=== PATIENT | female | born 1970 | race Caucasian/White ===

== ENCOUNTER 2024-10-11 14:11 | Outpatient (AMB) | payer OTHER, SELFPAY ==
--- NOTE | 2024-10-11 14:16 | A.OFFPC_ITS ---
Vital Signs 10/11/24 14:26 Height 5 ft 3.78 in Weight 161 lb 8 oz BMI 27.9 BP 98/64 Blood Pressure Location Rt brachial Position Sitting Respiration 12 Pulse 62 Pulse Source Pulse Oximeter Temp 98.3 F Temp Source Oral Pulse Oximetry (%) 98 Oxygen Delivery Method Room Air Intake Visit Reasons: care/ low back pain/mental health ref Intake Note: New patient visit Band Manager Required: No Allergies No Known Allergies Allergy (Verified 10/11/24 14:23) Medication List - Last Reconciled 10/11/24 by Ivory Montoya MD duloxetine 60 mg PO DAILY Tobacco use date assessed: 10/11/24 Dental Screening Dental Screen Date: 10/11/24 Did you have a dental visit in the last 12 months?: Yes Did you have a dental problem in the last 6 months where you did not have access to dental care?: No Was dental information given to patient?: Patient has dentist HPI HPI Comments History of Present Illness Details The patient is a 53 year old female with a past medical history of low back pain, depression presenting to [facility]. Transferring from [place]. BH: On [facility]. She would like to see a therapist. Her and her (in [place]) are going through a divorce. She has no money. She is living with her father. Her son is stationed in the [employer] in [place]. Was recently there to visit and brought his cat home. The cat is not fond of her. MSK: Low back pain, neck and shoulder pain. Hurt in 20s . Has has PT in the past, tried cortisone shots in the past. 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 This improved in childhood. Notes she has always been plagued by joint pain, muscle aches ROS see HPI PHYSICAL EXAM: GENERAL: Alert and oriented x 3. NAD EYES: EOMI. Anicteric. HENT: Moist mucous membranes. No scleral icterus. No cervical lymphadenopathy. LUNGS: Clear to auscultation bilaterally. CARDIOVASCULAR: Regular rate and rhythm. No murmur. No JVD. ABDOMEN: Soft, non-tender +bs EXTREMITIES: No edema. Non-tender. SKIN: No rashes or lesions. Warm. NEUROLOGIC: No focal neurological deficits. CN II-XII grossly intact PSYCHIATRIC: Cooperative. Appropriate mood and affect [facility] Surgical History History of lumpectomy of right breast History of tubal ligation H/O dilation and curettage Family History Father HTN (hypertension) Social History Housing: House Alcohol intake: current Patient Tobacco Use Status: Never used Tobacco e-Cigarette/Vaping Use: Currently Using Second Hand Smoke Exposure: No Substance Use Type: Former Substance User and Marijuana service: No Current occupational status: employed Current occupation: [employer] Current occupational exposures/hazards: No Cognitive needs: No Hearing needs: Yes (hearing issues.) Vision needs: Yes (glasses, near sighted.) Questionnaire PHQ-9 Over the last 2 weeks, how often have you been bothered by any of the following problems? 1. Little interest or pleasure in doing things: more than half the days 2. Feeling down, depressed, or hopeless: more than half the days 3. Trouble falling or staying asleep, or sleeping too much: nearly every day 4. Feeling tired or having little energy: nearly every day 5. Poor appetite or overeating: several days 6. Feeling bad about yourself - or that you are a failure or have let yourself or your family down: nearly every day 7. Trouble concentrating on things, such as reading the newspaper or watching television: nearly every day 8. Moving or speaking so slowly that other people could have noticed. Or the opposite - being so fidgety or restless that you have been moving around a lot more than usual: several days 9. Thoughts that you would be better off or of hurting yourself in some way: not at all Total score: 18 Depression Screening Interpretation: Positive Depression Screening Follow-up: Community Mental Health Worker F/U Depression Screening Done: Yes 84923 - PHQ-9 Billing: Yes Source: Developed by Drs. Franco Soto, Claire Javed, Blair Rose and colleagues, with an educational dong from [employer]. Thrive Questionnaire I am a: Patient What is your living situation today?: I have a steady place to live Within the past 12 months, did the food you bought not last and you didn't have the money to get more?: Sometimes True Within the past 12 months, did you worry whether your food would run out before you got money to buy more?: I choose not to answer this question Do you have trouble paying for medicines?: Yes Do you have trouble getting transportation to medical appointments?: No Do you have trouble paying your heating and electricity bill?: No Do you have trouble taking care of your child, family member or friend?: Yes Do you have trouble with day-to-day activities such as bathing, preparing meals, shopping, managing finances, etc.?: Yes Are you currently unemployed and looking for a job?: No Are you interested in more education?: No Please select the resources that you would like help with: Paying for medicine Currently or been in a relationship where the following occur: Controlled Financially and Controlled Emotionally THRIVE Score: 3 AUDIT C Alcohol Use Questionnaire (AUDIT-C) 1. How often do you have a drink containing alcohol?: 4 or more times a week 2. How many drinks containing alcohol do you have on a typical day when you are drinking?: 3 or 4 3. How often do you have six or more drinks on one occasion?: Monthly Total Score: 7 BRENDA-7 AMB Questionnaire BRENDA-7 Feeling nervous, anxious, or on edge: 2 = More than half the days Not being able to stop or control worryin = More than half the days Worrying too much about different things: 2 = More than half the days Trouble relaxin = Nearly every day Being so restless that it is hard to sit still: 1 = Several days Becoming easily annoyed or irritable: 1 = Several days Feeling afraid as if something awful might happen: 1 = Several days Total BRENDA-7 score (0-4 normal; 5-9 mild; 10-14 moderate; 15-21 severe): 12 Source: Developed by Drs. Franco Soto, Claire Javed, Blair Rose and colleagues, with an educational dong from [employer]. Physical exam (Primary Care) Vital Signs: Last Vital Signs Temp 98.3 F 10/11/24 14:26 Pulse 62 10/11/24 14:26 Resp 12 10/11/24 14:26 BP 98/64 10/11/24 14:26 Pulse Ox 98 10/11/24 14:26 Oxygen Delivery Method Room Air 10/11/24 14:26 BMI result Body Mass Index 27.9 Tobacco/Smoking Status: Tobacco use Status Tobacco use date assessed 10/11/24 10/11/24 14:19 Patient Tobacco Use Status Never used Tobacco 10/11/24 14:42 e-Cigarette/Vaping Use Currently Using 10/11/24 14:42 PHQ-9: PHQ-9 Score PHQ-9: Total score 18 10/12/24 11:11 Depression Screening Interpretation: Positive Depression Screening Follow-up: Community Mental Health Worker F/U Currently or been in a relationship where the following occur: Controlled Financially and Controlled Emotionally Coding Level of Care Code New Pt Level 4 (07030) Complex EM visit Add On G2211 Diagnoses Encounter to establish care Z76.89 Recurrent major depressive disorder, in partial remission F33.41 Active/Remission status: in partial remission Depression Type: major depressive disorder Major depression recurrence: recurrent Chronic bilateral low back pain, unspecified whether sciatica present M54.50; G89.29 Back pain laterality: bilateral Chronicity: chronic Sciatica presence: unspecified whether sciatica present Additional Codes PHQ-9 - 07174 - PHQ-9 Billing: Yes ([id number]) Assessment & Plan Assessment & Plan (1) Encounter to establish care: Code(s): Z76.89 - Persons encountering health services in other specified circumstances Category: Medical (2) Depression: Code(s): F32.A - Depression, unspecified Category: Medical Qualifiers: Active/Remission status: in partial remission Depression Type: major depressive disorder Major depression recurrence: recurrent Qualified Code(s): F33.41 - Major depressive disorder, recurrent, in partial remission (3) Low back pain: Code(s): M54.50 - Low back pain, unspecified Category: Medical Qualifiers: Back pain laterality: bilateral Chronicity: chronic Sciatica presence: unspecified whether sciatica present Qualified Code(s): M54.50 - Low back pain, unspecified; G89.29 - Other chronic pain Plan 53 y/o to establish care Past medical, surgical, social & family history reviewed Back pain-xrays ordered. Referral to pain management. continue cymbalta. Trial baclofen, meloxicam Due for preventive care-Mammo ordered. Referral to obkatelynn Cologjean ordered : increased stress. continues to benefit from cymbalta. referral to placed. Labs ordered Orders: Orders XR lumbar spine 2-3V 10/11/24 M54.2 - Cervicalgia, M54.50 - Low back pain, unspecified XR cervical spine 4V 10/11/24 M54.2 - Cervicalgia, M54.50 - Low back pain, unspecified Erythrocyte Sedimentation Rate 10/11/24 F32.A - Depression, unspecified, F43.9 - Reaction to severe stress, unspecified, M25.50 - Pain in unspecified joint, M54.2 - Cervicalgia, M54.50 - Low back pain, unspecified Comprehensive Met. Panel 10/11/24 F32.A - Depression, unspecified, F43.9 - Reaction to severe stress, unspecified, M25.50 - Pain in unspecified joint, M54.2 - Cervicalgia, M54.50 - Low back pain, unspecified TSH reflex Free T4 10/11/24 F32.A - Depression, unspecified, F43.9 - Reaction to severe stress, unspecified, M25.50 - Pain in unspecified joint, M54.2 - Cervicalgia, M54.50 - Low back pain, unspecified MM diagnostic mammo BI 10/11/24 Z80.3 - Family history of malignant neoplasm of breast Complete Blood Count Auto Diff 10/11/24 F32.A - Depression, unspecified, F43.9 - Reaction to severe stress, unspecified, M25.50 - Pain in unspecified joint, M54.2 - Cervicalgia, M54.50 - Low back pain, unspecified Rheumatoid Factor 10/11/24 F32.A - Depression, unspecified, F43.9 - Reaction to severe stress, unspecified, M25.50 - Pain in unspecified joint, M54.2 - Cervicalgia, M54.50 - Low back pain, unspecified Lyme IgG/IgM w/reflex to WB 10/11/24 F32.A - Depression, unspecified, F43.9 - Reaction to severe stress, unspecified, M25.50 - Pain in unspecified joint, M54.2 - Cervicalgia, M54.50 - Low back pain, unspecified Vitamin B12 and Folate 10/11/24 F32.A - Depression, unspecified, F43.9 - Reaction to severe stress, unspecified, M25.50 - Pain in unspecified joint, M54.2 - Cervicalgia, M54.50 - Low back pain, unspecified Referrals Behavioral Health Referral F32.A - Depression, unspecified, F43.9 - Reaction to severe stress, unspecified Cologuard Test Z01.419 - Encounter for gynecological examination (general) (routine) without abnormal findings, Z12.11 - Encounter for screening for malignant neoplasm of colon, Z12.12 - Encounter for screening for malignant neoplasm of rectum Pain Management Referral M54.2 - Cervicalgia, M54.50 - Low back pain, unspecified EXTENSION SERVICE SPECIALIST Referral Z01.419 - Encounter for gynecological examination (general) (routine) without abnormal findings Medications: New baclofen 10 mg PO QID 120 tabs 3RF duloxetine 60 mg PO DAILY 90 caps 3RF meloxicam 15 mg PO DAILY 90 tabs 3RF
[2024-10-11 14:26] VITALS: BP 98/64; PULSE 62; RESP 12; TEMP 36.8; O2SAT 98; BMI 27.9
--- OUTSIDE RECORDS SUMMARY | 2024-10-11 15:33 | XMS_ITS ---
Author Organization [facility], [facility] Address [address] [place], [place] [id number] Care Team Providers Care Reinforcing Steel Worker Name Role Phone VALENTINO RICHARDSON Primary Care Provider [phone] Ailyn Cates [phone] REASON FOR VISIT New patient Encounters Encounter Location Date Provider Diagnosis [facility], [facility] [address] [place], [place] [phone] 07/05/2024 Ailyn Cates PLAN OF TREATMENT No Information Progress Notes * AUDREY WHITEHEADDOB: 2 (53 yo F)Acc No.[id number]:07/05/2024 Progress Notes Patient:??AUDREY WHITEHEAD Provider:??Ailyn Cates DNP :1970?Age:53 Y?Sex:Fe male Date:07/05/2024 Address:[address] [place], [place] [id number] Pcp:VALENTINO RICHARDSON Subjective: * Chief Complaints: * ?1. New patient. * Medical History:?? Objective: Assessment: Plan: * Treatment: Care Plan: * Problems:?? * Billing Information: * Visit Code:?? * Procedure Codes:?? * Sign off status: Pending * Provider:??Ailyn Cates DNP Date:??
--- OUTSIDE RECORDS SUMMARY | 2024-10-11 15:33 | XMS_ITS | Patient Health Record ---
Author Organization [facility] Address [address], [place] [id number] Care Team Providers Care Evs Manager Name Role Phone VALENITNO RICHARDSON Primary Care Provider Ailyn Cates [phone] REASON FOR REFERRAL No Information Encounters Encounter Location Date Provider Diagnosis [facility] [address], [place] [id number] 07/05/2024 Ailyn Cates PLAN OF TREATMENT No Information Insurance Providers Payer Name Payer Address Payer Phone Subscriber Number Group Number Insured Name Patient Relationship to Insured Coverage Start Date Coverage End Date [facility] [address] [address] [place] [phone] [id number] AUDREY WHITEHEAD Self - patient is the insured
== END 2024-10-11 14:53 | disposition home or self-care (01) ==
LOC: HO.HMCFM 14:12
PROVIDERS: PCP Internal Medicine; Visit Provider Internal Medicine
DX: Z76.89 Persons encountering health services in other specified circumstances (principal); F33.41 Major depressive disorder, recurrent, in partial remission; M54.50 Low back pain, unspecified; G89.29 Other chronic pain

== ENCOUNTER → 2024-10-11 14:11 | Outpatient (BNVA) | payer OTHER, SELFPAY | PROVIDERS: PCP Internal Medicine; Visit Provider Internal Medicine | DX: F33.41 Major depressive disorder, recurrent, in partial remission (principal); M54.50 Low back pain, unspecified; G89.29 Other chronic pain; M54.2 Cervicalgia; F43.9 Reaction to severe stress, unspecified; Z80.3 Family history of malignant neoplasm of breast; Z76.89 Persons encountering health services in other specified circumstances | CPT/HCPCS: 96127 ==

== ENCOUNTER 2024-10-11 14:58 | Outpatient (REF) | payer OTHER, SELFPAY ==
[2024-10-11 17:38] LABS: MANUAL DIFF FLAG NO
[2024-10-11 17:47] LABS: Basophils Absolute Auto 0.1 X10*3/uL (0.0-0.2); Eosinophils Absolute Auto 0.1 X10*3/uL (0.0-0.4); Eosinophils Percent Auto 1.8 % (0-4); Hematocrit 39.6 % (37.0-47.0); Hemoglobin 14.1 g/dl (12.0-16.0); Imm Gran Abs Auto 0.02 X10*3/uL (0.00-0.03); Imm Gran Pct Auto 0.4 % (0.0-0.4); Lymphocytes Absolute Auto 1.5 X10*3/uL (1.2-4.9); Lymphocytes Percent Auto 29.2 % (20-40); Mean Corpuscular HGB Conc 35.6 g/dl (31.0-35.0); Mean Corpuscular Hemoglobin 33.3 pg (27.0-33.0); Mean Corpuscular Volume 93.4 fL (80.0-98.0); Mean Platelet Volume 9.5 fL (9.4-12.3); Monocytes Absolute Auto 0.4 X10*3/uL (0.1-1.2); Monocytes Percent Auto 8.4 % (2-11); Neutrophils Percent Auto 59.2 % (45-73); Platelet Count 264 X10*3/uL (160-400); Red Blood Count 4.24 X10*6/uL (4.20-5.50); Red Cell Distribution Width 11.9 % (11.0-16.0); White Blood Count 5.1 X10*3/uL (4.8-10.8)
[2024-10-11 18:17] LABS: Rheumatoid Factor < 13.0 IU/mL (<15.0)
[2024-10-11 18:31] LABS: Erythrocyte Sedimentation Rate 12 MM/HR (0-20)
[2024-10-11 18:42] LABS: Folate 12.1 ng/mL (> or = 4.0); Vitamin B12 779 pg/mL (200-900)
[2024-10-11 19:13] LABS: Alanine Aminotransferase 21 U/L (0-31); Alkaline Phosphatase 97 U/L (39-117); Anion Gap 13 (12-20); Aspartate Amino Transferase 30 U/L (5-31); Bilirubin Total 0.2 mg/dL (0.0-1.0); Blood Urea Nitrogen 14 mg/dL (9-16); Carbon Dioxide 25 mmol/L (22-29); Chloride 109 mmol/L (96-108); Estimated Glomerular Filt Rate > 60; Glucose Random 92 mg/dL (60-115); Potassium 4.2 mmol/L (3.3-5.1); Sodium 143 mmol/L (135-145); TSH reflex Free T4 2.04 uIU/mL (0.32-4.0); Total Protein 6.6 g/dL (6.5-8.0)
[2024-10-12 22:43] LABS: Lyme Abs Screen <0.90 index
== END 2024-10-11 14:59 | disposition home or self-care (01) ==
LOC: HO.WFDLDS 14:58
PROVIDERS: Visit Provider Internal Medicine
DX: F32.A Depression, unspecified (principal); M54.50 Low back pain, unspecified; F43.9 Reaction to severe stress, unspecified; M54.2 Cervicalgia; M25.50 Pain in unspecified joint
CPT/HCPCS: 36415; 80053; 82607; 82746; 84443; 85025; 85652; 86431; 86617; 86618

== ENCOUNTER 2024-11-03 08:12 | Outpatient (REF) | payer OTHER, SELFPAY ==
--- NOTE | ~2024-11-03 | XR_ITS ---
CLINICAL HISTORY: M54.2 - Cervicalgia 5 views cervical spine Comparison: None Findings: Normal alignment. No acute fractures or dislocation. There are degenerative disc changes at C3-C4 and C6-C7. Visualized neural foramina are patent. Prevertebral soft tissues within normal limits. IMPRESSION: No acute findings. This document has been electronically signed by: Liang Waters MD on 11/04/2024 08:54:27
--- NOTE | ~2024-11-03 | MM_ITS ---
EXAMINATION: MM SCREENING DIGITAL BREAST TOMOSYNTHESIS, BILATERAL CLINICAL INFORMATION: Screening. Asymptomatic. COMPARISON: Mammography: Comparison is made with available priors TECHNIQUE: Digital breast mammography with tomosynthesis is performed in both the craniocaudal and mediolateral oblique views along with computer-aided detection (CAD). FINDINGS: There are scattered areas of fibroglandular density (ACR BI-RADS breast composition Category b). There are no significant masses, abnormal calcifications, or other abnormalities. MM/MM tomosynthesis screening BI IMPRESSION: No mammographic evidence of malignancy. ASSESSMENT: BI-RADS BI-RADS 1 - Negative RECOMMENDATION: Routine annual mammography screening. 1 year F/U This examination should not preclude the clinical evaluation of a suspicious palpable abnormality. This patient's information was entered into a reminder system with a target due date for their next mammogram. Electronically signed by: Carolynn Rodríguez DO 11/08/2024 05:57 PM EDT
--- NOTE | ~2024-11-03 | XR_ITS ---
EXAMINATION: XR LUMBOSACRAL SPINE CLINICAL INFORMATION: M54.2 - Cervicalgia COMPARISON: None available. TECHNIQUE: Three views of the lumbosacral spine. FINDINGS: There is a mild levoconvex scoliosis, apex at L3. There is a normal lumbar lordosis. There is normal alignment without subluxation. No fractures, compression deformities, or suspicious bone lesions. Mild to moderate disc degeneration noted L3-S1. Normal facet alignment. Degenerative facet changes most notable L4-S1. The sacrum is intact. The SI joints appear normal. No soft tissue abnormalities. XR/XR lumbar spine 2-3V IMPRESSION: 1. No acute findings of the lumbar spine. 2. Mild levoconvex scoliosis and mild to moderate lumbar spondylosis. Electronically signed by: Jagdeep Francisco MD 11/03/2024 09:57 AM EDT
== END 2024-11-03 08:13 | disposition home or self-care (01) ==
LOC: HO.MAMMO 08:12
PROVIDERS: PCP Internal Medicine; Visit Provider Internal Medicine
DX: Z12.31 Encounter for screening mammogram for malignant neoplasm of breast (principal); M54.2 Cervicalgia; M54.50 Low back pain, unspecified
CPT/HCPCS: 72050; 72100; 77063; 77067

== ENCOUNTER → 2024-11-03 08:46 | Outpatient (BNV) | payer OTHER, SELFPAY | PROVIDERS: PCP Internal Medicine; Visit Provider Radiology Diagnostic Radiology | DX: M54.2 Cervicalgia (principal) | CPT/HCPCS: 72050; 72100 ==

== ENCOUNTER 2024-11-14 15:06 | Outpatient (AMB) | payer OTHER, SELFPAY ==
--- NOTE | 2024-11-14 15:09 | A.OFFVIS_ITS ---
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 Over more than two decades, these symptoms have significantly impacted her daily life, especially activities involving bending and lifting. The neck and shoulder pain were most notable post-physical therapy for back pain, linked to work duties. Despite a lack of trauma or whiplash history, the pain persists with descriptions of sharp, aching, and pulling characteristics, spreading across both shoulders. Pain management has included physical therapy and injections for back-related issues, while interventions for neck and shoulder pain have been minimal. The patient notes significant relief in back pain since starting Cymbalta, though the medication doesn't target neck or shoulder symptoms. Nicotine usage via vaping helps momentarily with muscle relaxation, complementing her non- medication pain management strategies. The patient continues to face challenges in her personal life including a history of depression, primarily associated with personal and familial stressors. She underwent stomach size reduction surgery nearly a decade ago for obesity, noticing ongoing memory issues postoperatively and experiences chronic headaches, sporadic concentration difficulties, and disrupted sleep cycles. - Onset and timing: Chronic; present for over 20 years - Quality and character: Sharp, pulling, aching, heavy, tingling, sore, tiring, tight, shooting, stabbing - Primary location: Neck and shoulders, radiating between shoulders - Areas of radiation: Between the two shoulders - Exacerbating factors: Worse in the morning and night; activities including bending, lifting, and wiping tables - Relieving factors: Cymbalta for back pain; using nicotine through vaping for muscle relaxation; heat/cold - Interference with activities: Difficulty lifting and completing particular tasks; limits driving distances - Affect: Reports depression, particularly due to personal stressors - Analgesia: Reports Cymbalta helps with back pain; current level of neck and shoulder pain varies between 5-8/10 - Adverse Effects: Reports no medication side effects - Activities of Daily Living: Refrains from activities requiring bending, lifting; reports decreased sleep quality due to pain - Aberrant Drug Related Behaviors: High nicotine usage through vaping; regular alcohol use Oswestry Back Pain Disability Score=22 Oswestry Neck Pain Disability Score=23 [facility] Surgical History (Updated 11/14/24 @ 15:30 by KLAUDIA Ahn) History of sleeve gastrectomy (~2009) History of lumpectomy of right breast History of tubal ligation H/O dilation and curettage Family History Father HTN (hypertension) Social History Housing: House Alcohol intake: current Alcohol intake frequency: 0-2 drinks per day Alcohol type: wine and hard liquor Patient Tobacco Use Status: Former Tobacco user e-Cigarette/Vaping Use: Currently Using Second Hand Smoke Exposure: No Substance Use Type: Former Substance User and Marijuana service: No Current occupational status: employed Current occupation: [employer] Current occupational exposures/hazards: No Cognitive needs: No Hearing needs: Yes (hearing issues.) Vision needs: Yes (glasses, near sighted.) Review of Systems Const Details: - Musculoskeletal: Reports chronic pain in neck, back, and shoulders; reports muscle spasms - Neurological: Reports headaches and concentration difficulties; denies dizziness from medications - Psychiatric: Reports a history of depression, current status under control with Cymbalta - Respiratory: Denies having any reported respiratory issues - Gastrointestinal: Reports history of weight loss surgery - Sleep: Reports disrupted sleep, waking up every few hours All systems reviewed & are unremarkable except as noted in HPI and below Physical Exam Vital Signs: Last Vital Signs Pulse 61 11/14/24 15:14 BP 121/65 11/14/24 15:14 Pulse Ox 99 11/14/24 15:14 Oxygen Delivery Method Room Air 11/14/24 15:14 BMI result Body Mass Index 27.0 General: Appears afebrile. Alert and oriented. Mood and affect appropriate. Follows and participates in conversation appropriately. Respiratory effort is unlabored. No cough. Able to transition from sit to stand unassisted. Ambulates with bilaterally normal heel strike and toe off. Neck Other: Patient with decreased cervical ROM in all planes/especially with lateral rotation. Reports mild to moderate pain with cervical extension and flexion. Spurling compression test is negative. Pain is unchanged by Spurling maneuver with retraction. Elvey's tension test negative bilaterally. Lhermitte's test was negative. DTR intact, +2 and symmetrical. Patient demonstrated 5/5 motor strength of bilateral upper extremities. 2 + radial pulses. Multiple taut bands palpated throughout bilateral upper trapezius and rhomboid muscles. Mildly restricted bilateral shoulder ROM, L>R with pain increase with overhead reaches and mild TTP in the anterior and posterior aspects of both shoulders. Neck: Yes normal visual inspection, Yes full ROM, Yes no lymphadenopathy, Yes supple, No anterior neck swelling, Yes no JVD, No prominent supraclavicular fat pad and Yes prominent dorsocervical fat pad General: Yes no CVA tenderness Back/Spine/Pelvis Other: Patient is able to walk and stand on heels and tip toes with no difficulties demonstrating good motor tone. No limping. Can flex forward to 75-80 degrees and extend to 5-10 degrees before experiencing lumbar pain, worse pain with extension and axial rotations. Demonstrates 5/5 strength of quadriceps bilaterally as well as flexion/dorsiflexion of bilateral feet against resistance. 2+ pedal pulses bilaterally. Straight leg rise with dorsiflexion negative bilaterally. +2 patellar and achilles reflexes bilaterally. Facet loading test positive bilaterally. Ace?s and Stinchfield tests are negative bilaterally. No groin pain with I/E hip rotations. Valsalva maneuver negative. Back: no CVA tenderness Cervical Spine: cervical ROM normal, cervical muscular tenderness, pain with cervical ROM, cervical spasm, No Cervical spine tenderness and No step off deformity Thoracic/Lumbar Spine: thoracic and lumbar spine normal to inspection, No Thoracic/lumbar spine scar(s), Lasegue's sign negative, straight leg raise negative bilaterally, pain with thoraco-lumbar ROM, paraspinal muscle tenderness, thoraco-lumbar ROM limited, Thoracic/lumbar scoliosis, No thoracic spinal tenderness and lumbar spinal tenderness Pelvis: no buttock tenderness Sacroiliac joints: bilaterally tender to palpation Extrem General: Yes capillary refill normal, Yes no clubbing, cyanosis or edema and Yes no calf tenderness Results Reviewed Results Reviewed: XR cervical spine 4V 11/04/24 Comparison: None Findings: Normal alignment. No acute fractures or dislocation. There are degenerative disc changes at C3-C4 and C6-C7. Visualized neural foramina are patent. Prevertebral soft tissues within normal limits. IMPRESSION: No acute findings. XR LUMBOSACRAL SPINE 11/03/24 CLINICAL INFORMATION: M54.2 - Cervicalgia COMPARISON: None available. TECHNIQUE: Three views of the lumbosacral spine. FINDINGS: There is a mild levoconvex scoliosis, apex at L3. There is a normal lumbar lordosis. There is normal alignment without subluxation. No fractures, compression deformities, or suspicious bone lesions. Mild to moderate disc degeneration noted L3-S1. Normal facet alignment. Degenerative facet changes most notable L4-S1. The sacrum is intact. The SI joints appear normal. No soft tissue abnormalities. IMPRESSION: 1. No acute findings of the lumbar spine. 2. Mild levoconvex scoliosis and mild to moderate lumbar spondylosis. XR Shoulder Marek min 2V 11/14/24 TECHNIQUE: AP, Grashey, scapular Y, axillary views bilateral shoulders INDICATION: Shoulder pain FINDINGS: LEFT SHOULDER: A.C. joint and glenohumeral joints are intact without degeneration. There is no dislocation. Visualized left upper chest is unremarkable. RIGHT SHOULDER: The AC joint is intact and not degenerated. The glenohumeral joint is intact and not degenerated. Visualized right chest is unremarkable. IMPRESSION: Unremarkable bilateral shoulders. Assessment & Plan Assessment & Plan (1) Low back pain: Code(s): M54.50 - Low back pain, unspecified Category: Medical Qualifiers: Back pain laterality: bilateral Chronicity: chronic Sciatica presence: unspecified whether sciatica present Qualified Code(s): M54.50 - Low back pain, unspecified; G89.29 - Other chronic pain (2) Cervicalgia: Code(s): M54.2 - Cervicalgia Category: Medical (3) Polyarthralgia: Code(s): M25.50 - Pain in unspecified joint Category: Medical (4) Lumbosacral spondylosis: Code(s): M47.817 - Spondylosis without myelopathy or radiculopathy, lumbosacral region Category: Medical (5) Bilateral shoulder pain: Code(s): M25.511 - Pain in right shoulder; M25.512 - Pain in left shoulder Category: Medical (6) Muscle spasm: Code(s): M62.838 - Other muscle spasm Category: Medical Plan To manage the chronic neck and shoulder pain, patient will initiate physical therapy in closer proximity to her home and work setting in [place]. Should this the rapy be ineffective, further evaluation for procedural interventions or injections is possible, including radiofrequency ablation, peripheral nerve stimulation or spinal cord stimulation, depending upon her response to diagnostic tests. Bilateral shoulder x-rays (obtained after today's visit) are normal. Patient's pain generators are consistent with predominantly axial cervical and lumbar pain with myofascial pain components. The mutual acknowledgment of vaping's short-term relief effects leads to encouragement for cessation due to long-term health risks. Nicotine dependency and alcohol use are also addressed during the visit. The patient is advised to monitor her symptoms and maintain communication regarding future pain management outcomes and any changes in her condition. All questions and concerns have been answered and patient agrees with the treatment plan. Follow-up after PT and sooner as needed. Patient was informed and verbally consented to the use of an ambient scribe for clinic note documentation during this visit. Orders: Orders PT Evaluation and Treatment 11/14/24 G89.29 - Other chronic pain, M25.511 - Pain in right shoulder, M25.512 - Pain in left shoulder, M47.817 - Spondylosis without myelopathy or radiculopathy, lumbosacral region, M54.2 - Cervicalgia, M54.50 - Low back pain, unspecified, M62.838 - Other muscle spasm XR shoulder RT min 2V 11/14/24 M25.511 - Pain in right shoulder, M25.512 - Pain in left shoulder Coding Level of Care Code New Pt Level 4 (28710) Diagnoses Chronic bilateral low back pain, unspecified whether sciatica present M54.50; G89.29 Back pain laterality: bilateral Chronicity: chronic Sciatica presence: unspecified whether sciatica present Cervicalgia M54.2 Polyarthralgia M25.50 Lumbosacral spondylosis M47.817 Bilateral shoulder pain M25.511; M25.512 Muscle spasm M62.838
[2024-11-14 15:14] VITALS: BP 121/65; PULSE 61; O2SAT 99; BMI 27.0
== END 2024-11-14 15:46 | disposition home or self-care (01) ==
LOC: HO.PMC 15:06
PROVIDERS: PCP Internal Medicine; Referring Provider Internal Medicine; Visit Provider Nurse Practitioner Family
DX: M54.50 Low back pain, unspecified (principal); G89.29 Other chronic pain; M54.2 Cervicalgia; M25.50 Pain in unspecified joint; M47.817 Spondylosis without myelopathy or radiculopathy, lumbosacral region; M25.511 Pain in right shoulder; M25.512 Pain in left shoulder; M62.838 Other muscle spasm
CPT/HCPCS: 99204

== ENCOUNTER 2024-11-14 15:54 | Outpatient (REF) | payer OTHER, SELFPAY ==
--- NOTE | ~2024-11-14 | XR_ITS ---
Exam: 4 views bilateral shoulders TECHNIQUE: AP, Grashey, scapular Y, axillary views bilateral shoulders INDICATION: Shoulder pain Prior: None FINDINGS: LEFT SHOULDER: A.C. joint and glenohumeral joints are intact without degeneration. There is no dislocation. Visualized left upper chest is unremarkable. RIGHT SHOULDER: The AC joint is intact and not degenerated. The glenohumeral joint is intact and not degenerated. Visualized right chest is unremarkable. XR/XR Shoulder Marek min 2V IMPRESSION: Unremarkable bilateral shoulders. Electronically signed by: Ronnie Munoz MD 11/14/2024 05:13 PM EDT
== END 2024-11-14 15:55 | disposition home or self-care (01) ==
LOC: HO.XRAY 15:54
PROVIDERS: PCP Internal Medicine; Visit Provider Nurse Practitioner Family
DX: M25.519 Pain in unspecified shoulder (principal)
CPT/HCPCS: 73030

== ENCOUNTER → 2024-11-14 15:56 | Outpatient (BNV) | payer OTHER, SELFPAY | PROVIDERS: PCP Internal Medicine; Visit Provider Radiology Diagnostic Radiology | DX: M25.519 Pain in unspecified shoulder (principal) | CPT/HCPCS: 73030 ==

== ENCOUNTER 2025-01-30 08:51 | Outpatient (AMB) | payer OTHER, SELFPAY ==
--- NOTE | 2025-01-30 09:17 | A.OFFPC_ITS ---
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 Her and her (in [place]) are going through a divorce. She is living with her father. Her son is stationed in the [employer]. She feels stable on medication MSK: Low back pain, neck and shoulder pain. Hurt in 20s . Has has PT in the past, tried cortisone shots in the past. 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 She went to pain management and they wanted her to repeat PT. Notes a history of celiac disease. This improved in childhood. Notes she has always been plagued by joint pain, muscle aches. Her recent labs were normal ROS see HPI PHYSICAL EXAM: GENERAL: Alert and oriented x 3. NAD EYES: EOMI. Anicteric. HENT: Moist mucous membranes. No scleral icterus. No cervical lymphadenopathy. LUNGS: Clear to auscultation bilaterally. CARDIOVASCULAR: Regular rate and rhythm. No murmur. No JVD. ABDOMEN: Soft, non-tender +bs EXTREMITIES: No edema. Non-tender. SKIN: No rashes or lesions. Warm. NEUROLOGIC: No focal neurological deficits. CN II-XII grossly intact PSYCHIATRIC: Cooperative. Appropriate mood and affect [facility] Surgical History History of sleeve gastrectomy (~2009) History of lumpectomy of right breast History of tubal ligation H/O dilation and curettage Family History Father HTN (hypertension) Social History Housing: House Alcohol intake: current Alcohol intake frequency: 0-2 drinks per day Alcohol type: wine and hard liquor Patient Tobacco Use Status: Former Tobacco user e-Cigarette/Vaping Use: Currently Using Second Hand Smoke Exposure: No Substance Use Type: Former Substance User and Marijuana service: No Current occupational status: employed Current occupation: [employer] Current occupational exposures/hazards: No Cognitive needs: No Hearing needs: Yes (hearing issues.) Vision needs: Yes (glasses, near sighted.) Questionnaire Thrive Questionnaire Date Thrive assessed: 10/11/24 I am a: Patient What is your living situation today?: I have a steady place to live Within the past 12 months, did the food you bought not last and you didn't have the money to get more?: Sometimes True Within the past 12 months, did you worry whether your food would run out before you got money to buy more?: I choose not to answer this question Do you have trouble paying for medicines?: Yes Do you have trouble getting transportation to medical appointments?: No Do you have trouble paying your heating and electricity bill?: No Do you have trouble taking care of your child, family member or friend?: Yes Do you have trouble with day-to-day activities such as bathing, preparing meals, shopping, managing finances, etc.?: Yes Are you currently unemployed and looking for a job?: No Are you interested in more education?: No Please select the resources that you would like help with: Paying for medicine THRIVE Score: 1 Physical exam (Primary Care) Vital Signs: Last Vital Signs Temp 98.1 F 01/30/25 09:26 Pulse 58 01/30/25 09:26 Resp 12 01/30/25 09:26 BP 112/76 01/30/25 09:26 Pulse Ox 98 01/30/25 09:26 Oxygen Delivery Method Room Air 01/30/25 09:26 BMI result Body Mass Index 26.9 Tobacco/Smoking Status: Tobacco use Status Tobacco use date assessed 11/09/24 01/30/25 09:33 Patient Tobacco Use Status Former Tobacco user 01/30/25 09:33 e-Cigarette/Vaping Use Currently Using 01/30/25 09:33 Thrive Assessment: Date of Thrive Assessment Date Thrive assessed 10/11/24 01/30/25 09:17 Coding Level of Care Code Est Pt Level 4 (23664) Diagnoses Polyarthralgia M25.50 Cervicalgia M54.2 Bilateral shoulder pain, unspecified chronicity M25.511; M25.512 Chronicity: unspecified Recurrent major depressive disorder, in partial remission F33.41 Active/Remission status: in partial remission Depression Type: major depressive disorder Major depression recurrence: recurrent Assessment & Plan Assessment & Plan (1) Polyarthralgia: Code(s): M25.50 - Pain in unspecified joint Category: Medical (2) Cervicalgia: Code(s): M54.2 - Cervicalgia Category: Medical (3) Bilateral shoulder pain: Code(s): M25.511 - Pain in right shoulder; M25.512 - Pain in left shoulder Category: Medical Qualifiers: Chronicity: unspecified Qualified Code(s): M25.511 - Pain in right shoulder; M25.512 - Pain in left shoulder (4) Depression: Code(s): F32.A - Depression, unspecified Category: Medical Qualifiers: Active/Remission status: in partial remission Depression Type: major depressive disorder Major depression recurrence: recurrent Qualified Code(s): F33.41 - Major depressive disorder, recurrent, in partial remission Plan 54 year old for follow up Anxiety/depression-well controlled. duloxetine continues to help with back pain but not so much with her neck pain. Recommended trial of acupressure She had her mammogram. She was ordered cologuard but it was not due. The company will send when due.
[2025-01-30 09:26] VITALS: BP 112/76; PULSE 58; RESP 12; TEMP 36.7; O2SAT 98; BMI 26.9
== END 2025-01-30 10:01 | disposition home or self-care (01) ==
LOC: HO.HMCFM 08:52
PROVIDERS: PCP Internal Medicine; Visit Provider Internal Medicine
DX: M25.50 Pain in unspecified joint (principal); M54.2 Cervicalgia; M25.511 Pain in right shoulder; M25.512 Pain in left shoulder; F33.41 Major depressive disorder, recurrent, in partial remission